=== PATIENT | male | born 2000 | race Caucasian/White ===

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

== ENCOUNTER 2023-04-16 09:15 | Inpatient (IN) | payer MEDICAID ==
[~2023-04-16] VITALS: Ht 170.2 cm; Wt 61.0 kg
[2023-04-16 09:30] VITALS: PULSE 116; RESP 34; O2SAT 96
[2023-04-16] MEDS ORDERED: SODIUM CHLORIDE 0.9% 1,000 ML IV ONE (09:30)
[2023-04-16] MEDS ORDERED: ONDANSETRON HCL 4 MG/2 ML VIAL IVP ONE (09:30)
[2023-04-16 09:43] LABS: BASOPHILS % (AUTO) 0.3 % (0.0-2.0); EOSINOPHILS % (AUTO) 0.2 % (1.0-6.0); HEMATOCRIT 49.8 % (41-53); HEMOGLOBIN 16.1 g/dL (13.5-17.5); LYMPHOCYTES # (AUTO) 1.8 K/uL (1.0-4.8); LYMPHOCYTES % (AUTO) 10.5 % (22.0-44.0); MEAN CORPUSCULAR HEMOGLOBIN 31.1 pg (26.0-34.0); MEAN CORPUSCULAR HGB CONC 32.3 G/dL (31.0-37.0); MEAN CORPUSCULAR VOLUME 96 fL (80-100); MONOCYTES # (AUTO) 1.2 K/uL (0.1-1.0); MONOCYTES % (AUTO) 7.2 % (2.0-9.0); NEUTROPHILS % (AUTO) 81.8 % (40.0-70.0); PLATELET COUNT (AUTO) 333 K/uL (150-450); RED BLOOD CELL COUNT(AUTO) 5.18 MIL/uL (4.50-5.90); RED CELL DISTRIBUTION WIDTH 13.4 % (11.5-14.5)
[2023-04-16] MEDS ORDERED: ALBUTEROL SULFATE 2.5 MG/0.5 ML NEB SOLUTION NEB ONE (09:45)
[2023-04-16] MEDS ORDERED: PIPERACILLIN SODIUM/TAZOBACTAM 4.5 GM in DEXTROSE 5%-WATER 100 ML IV ONE (09:45)
[2023-04-16] MEDS ORDERED: DEXAMETHASONE SOD PHOS 4 MG/ML VIAL IVP ONE (09:45)
[2023-04-16] MEDS ORDERED: IPRATROPIUM BROMIDE 0.5 MG/2.5 ML NEB SOLUTION NEB ONE (09:45)
[2023-04-16 09:53] LABS: ANION GAP 14 mmol/L (8-16); CALCIUM, TOTAL 8.7 mg/dL (8.8-10.5); CARBON DIOXIDE 27 mmol/L (22-29); CHLORIDE 102 mmol/L (98-107); CREATININE 2.54 mg/dL (0.60-1.30); GLOMERULAR FILTR. RATE CALC 32 mL/min (>60); GLUCOSE,RANDOM 86 mg/dL (70-110); POTASSIUM 4.1 mmol/L (3.5-5.1); SODIUM SERUM 143 mmol/L (136-145)
[2023-04-16 10:02] LABS: B-TYPE NATRIURETIC PEPTIDE 9 pg/mL (0-100)
[2023-04-16 10:19] LABS: ALANINE AMINOTRANSFERASE 173 U/L (12-78); ALBUMIN 3.9 g/dL (3.4-5.0); ALKALINE PHOSPHATASE 149 U/L (46-116); ASPARTATE AMINOTRANSFERASE 369 U/L (15-37); BILIRUBIN,TOTAL 0.6 mg/dL (0.1-1.0); CREATINE KINASE, TOTAL ONLY 191 U/L (39-308); TOTAL PROTEIN, SERUM 8.1 g/dL (6.4-8.2)
[2023-04-16 10:25] LABS: ABG CARBOXYHEMOGLOBIN 0.1 % (0.0-3.0); ABG HCO3 18.5 mmol/L (22.0-26.0); ABG METHEMOGLOBIN 0.3 % (0.0-1.5); ABG OXYGEN CONTENT 22.3 mL/dL (15.0-23.0); ABG OXYGEN SATURATION 99.1 % (95.0-98.0); ABG OXYHEMOGLOBIN 98.7 % (94.0-100.0); ABG PCO2 51 mmHg (35-45); ABG PH 7.225 (7.350-7.450); ABG TOTAL HEMOGLOBIN 15.8 G/dL (12.0-18.0); O2 DEVICE,BLOOD GAS BIPAP (ROOM AIR); PO2, ARTERIAL BG 199.9 mmHg (80.0-100.0); SITE, BLOOD GAS RT BRACHIAL; SOURCE, BLOOD GAS ARTERIAL; TEMPERATURE, FAHRENHEIT, BG 95.7 FAHREN (96.0-98.6)
[2023-04-16 10:26] LABS: INSPIRATORY TIME, BG 0.9 SEC; PRESSURE SUPPORT, BG 11 cm H2O; SPONTANEOUS VT, BG 645 ml
[2023-04-16 10:37] LABS: PHOSPHORUS 12.6 mg/dL (2.5-4.9)
[2023-04-16 11:09] VITALS: PULSE 112; RESP 22; O2SAT 96
[2023-04-16 11:15] LABS: AMPHET/METH SCREEN,URINE POSITIVE (NEGATIVE); BARBITURATE SCREEN, URINE NEGATIVE (NEGATIVE); BENZODIAZEPINES SCREEN,URINE NEGATIVE (NEGATIVE); CANNABINOID SCREEN,URINE POSITIVE (NEGATIVE); COCAINE SCREEN,URINE NEGATIVE (NEGATIVE); METHADONE SCREEN, URINE NEGATIVE (NEGATIVE); OPIATE SCREEN,URINE NEGATIVE (NEGATIVE); PHENCYCLIDINE SCREEN,URINE NEGATIVE (NEGATIVE)
[2023-04-16 11:24] VITALS: PULSE 116; RESP 21; O2SAT 93
[2023-04-16] MEDS ORDERED: NALOXONE HCL 10 MG in DEXTROSE 5%-WATER 240 ML IV PRN (11:45)
[2023-04-16] MEDS: RINGERS SOLUTION,LACTATED 1,000 ML IV SCH ×2 (11:59→18:54)
[2023-04-16] MEDS ORDERED: ACETAMINOPHEN 325 MG TABLET PO PRN ×2 (12:15→13:00)
[2023-04-16] MEDS ORDERED: 0.9% SODIUM CHLORIDE 10 ML SYRINGE IVP PRN (12:15)
[2023-04-16] MEDS ORDERED: ONDANSETRON HCL 4 MG/2 ML VIAL IVP PRN ×2 (12:15→13:00)
[2023-04-16] MEDS ORDERED: BISACODYL 10 MG RECTAL RECTAL SUPPOSITORY PR PRN (13:00)
[2023-04-16] MEDS ORDERED: HYDROCODONE/ACETAMINOPHEN 5-325 MG TABLET PO PRN (13:00)
[2023-04-16] MEDS ORDERED: ZOLPIDEM TARTRATE 5 MG TABLET PO PRN (13:00)
[2023-04-16] MEDS ORDERED: MORPHINE SULFATE 2 MG/ML SYRINGE IVP PRN (13:00)
[2023-04-16] MEDS ORDERED: LORazepam 2 MG/ML VIAL IVP PRN (13:00)
[2023-04-16] MEDS ORDERED: MAGNESIUM SULFATE 2 GM, MVI, ADULT NO.1 WITH VIT K 10 ML, THIAMINE 100 MG, FOLIC ACID 1... IV ONE ×5 (13:00)
[2023-04-16] MEDS ORDERED: MAGNESIUM HYDROXIDE SUSPENSION 30 ML UDCUP PO PRN (13:00)
[2023-04-16] MEDS: CefTRIAXone SODIUM 2 GM in DEXTROSE 5%-WATER 50 ML IV SCH (13:25)
[2023-04-16] MEDS: DOXYCYCLINE HYCLATE 100 MG in DEXTROSE 5%-WATER 100 ML IV SCH (13:25)
[2023-04-16] MEDS: HEPARIN SODIUM,PORCINE 5,000 UNITS/ML VIAL SQ SCH ×2 (15:19→23:17)
[2023-04-16 17:36] LABS: GLUCOMETER DEV NAME(LOC) ER.6
[2023-04-16] MEDS ORDERED: HEPARIN SODIUM,PORCINE 5,000 UNITS/ML VIAL IVP PRN ×2 (20:00)
[2023-04-16] MEDS ORDERED: HEPARIN SODIUM 25000 UNITS/D5W 250 ML IV PRN (20:00)
[2023-04-16] MEDS ORDERED: HEPARIN SODIUM,PORCINE 5,000 UNITS/ML VIAL IVP ONE (20:00)
[2023-04-16] MEDS: DOCUSATE SODIUM 100 MG CAPSULE PO SCH (20:19)
[2023-04-16 21:17] LABS: HEMATOCRIT 44.2 % (41-53); HEMOGLOBIN 14.6 g/dL (13.5-17.5); MEAN CORPUSCULAR HEMOGLOBIN 30.8 pg (26.0-34.0); MEAN CORPUSCULAR VOLUME 93 fL (80-100); PLATELET COUNT (AUTO) 229 K/uL (150-450); RED BLOOD CELL COUNT(AUTO) 4.74 MIL/uL (4.50-5.90); RED CELL DISTRIBUTION WIDTH 13.1 % (11.5-14.5)
[2023-04-16 21:40] LABS: INR 1.4 (0.9-1.1)
[2023-04-16 21:49] LABS: BAND NEUTROPHILS % (MANUAL) 10 % (0-5); LYMPHOCYTES % (MANUAL) 10 % (22-44); MONOCYTES % (MANUAL) 4 % (2-9); SEGMENTED NEUTROPHILS % 76 % (40-70)
[2023-04-17] MEDS: DOXYCYCLINE HYCLATE 100 MG in DEXTROSE 5%-WATER 100 ML IV SCH ×2 (01:21→13:29)
[2023-04-17] MEDS: RINGERS SOLUTION,LACTATED 1,000 ML IV SCH ×3 (03:31→18:49)
[2023-04-17 05:23] LABS: BASOPHILS % (AUTO) 0.2 % (0.0-2.0); EOSINOPHILS % (AUTO) 0 % (1.0-6.0); HEMATOCRIT 40.2 % (41-53); HEMOGLOBIN 13.7 g/dL (13.5-17.5); LYMPHOCYTES # (AUTO) 1.7 K/uL (1.0-4.8); MEAN CORPUSCULAR HEMOGLOBIN 31.9 pg (26.0-34.0); MEAN CORPUSCULAR VOLUME 94 fL (80-100); MONOCYTES # (AUTO) 0.5 K/uL (0.1-1.0); MONOCYTES % (AUTO) 3.7 % (2.0-9.0); NEUTROPHILS # (AUTO) 11.2 K/uL (1.8-7.7); NEUTROPHILS % (AUTO) 83.1 % (40.0-70.0); PLATELET COUNT (AUTO) 211 K/uL (150-450); RED BLOOD CELL COUNT(AUTO) 4.28 MIL/uL (4.50-5.90); RED CELL DISTRIBUTION WIDTH 13.1 % (11.5-14.5)
[2023-04-17 05:40] LABS: ALANINE AMINOTRANSFERASE 110 U/L (12-78); ALBUMIN 2.7 g/dL (3.4-5.0); ALKALINE PHOSPHATASE 64 U/L (46-116); ANION GAP 5 mmol/L (8-16); ASPARTATE AMINOTRANSFERASE 229 U/L (15-37); BILIRUBIN,TOTAL 0.7 mg/dL (0.1-1.0); CALCIUM, TOTAL 7.8 mg/dL (8.8-10.5); CARBON DIOXIDE 28 mmol/L (22-29); CHLORIDE 105 mmol/L (98-107); CREATININE 1.16 mg/dL (0.60-1.30); GLOMERULAR FILTR. RATE CALC > 60 mL/min (>60); GLUCOSE,RANDOM 112 mg/dL (70-110); POTASSIUM 4.2 mmol/L (3.5-5.1); SODIUM SERUM 137 mmol/L (136-145)
[2023-04-17 05:47] LABS: CHOL/HDL RATIO 1.9 (4.2-7.3)
[2023-04-17] MEDS: HEPARIN SODIUM,PORCINE 5,000 UNITS/ML VIAL SQ SCH ×2 (07:05→15:03)
[2023-04-17] MEDS: DOCUSATE SODIUM 100 MG CAPSULE PO SCH ×2 (08:20→20:21)
[2023-04-17] MEDS: PANTOPRAZOLE SODIUM 40 MG DR TABLET PO SCH (08:24)
[2023-04-17] MEDS: CefTRIAXone SODIUM 2 GM in DEXTROSE 5%-WATER 50 ML IV SCH (13:29)
[2023-04-18] MEDS: DOXYCYCLINE HYCLATE 100 MG in DEXTROSE 5%-WATER 100 ML IV SCH ×2 (01:13→13:22)
[2023-04-18] MEDS: RINGERS SOLUTION,LACTATED 1,000 ML IV SCH ×3 (03:45→19:45)
[2023-04-18 06:08] LABS: BASOPHILS % (AUTO) 0.5 % (0.0-2.0); EOSINOPHILS % (AUTO) 0.6 % (1.0-6.0); HEMATOCRIT 41.2 % (41-53); HEMOGLOBIN 14.2 g/dL (13.5-17.5); LYMPHOCYTES # (AUTO) 1.6 K/uL (1.0-4.8); LYMPHOCYTES % (AUTO) 12.2 % (22.0-44.0); MEAN CORPUSCULAR HEMOGLOBIN 31.7 pg (26.0-34.0); MEAN CORPUSCULAR HGB CONC 34.5 G/dL (31.0-37.0); MEAN CORPUSCULAR VOLUME 92 fL (80-100); MONOCYTES # (AUTO) 0.6 K/uL (0.1-1.0); MONOCYTES % (AUTO) 4.2 % (2.0-9.0); NEUTROPHILS # (AUTO) 11.1 K/uL (1.8-7.7); NEUTROPHILS % (AUTO) 82.5 % (40.0-70.0); PLATELET COUNT (AUTO) 193 K/uL (150-450); RED BLOOD CELL COUNT(AUTO) 4.48 MIL/uL (4.50-5.90); RED CELL DISTRIBUTION WIDTH 12.8 % (11.5-14.5)
[2023-04-18 06:18] LABS: ANION GAP 4 mmol/L (8-16); CARBON DIOXIDE 28 mmol/L (22-29); CHLORIDE 105 mmol/L (98-107); CREATININE 0.93 mg/dL (0.60-1.30); GLOMERULAR FILTR. RATE CALC > 60 mL/min (>60); GLUCOSE,RANDOM 112 mg/dL (70-110); POTASSIUM 3.8 mmol/L (3.5-5.1); SODIUM SERUM 137 mmol/L (136-145)
[2023-04-18] MEDS: PANTOPRAZOLE SODIUM 40 MG DR TABLET PO SCH (08:36)
[2023-04-18] MEDS: DOCUSATE SODIUM 100 MG CAPSULE PO SCH ×2 (08:36→20:26)
[2023-04-18] MEDS: HEPARIN SODIUM,PORCINE 5,000 UNITS/ML VIAL SQ SCH ×4 (08:37→23:16)
[2023-04-18] MEDS: CefTRIAXone SODIUM 2 GM in DEXTROSE 5%-WATER 50 ML IV SCH (14:52)
[2023-04-18 23:02] VITALS: BP 140/77; PULSE 87; RESP 18; TEMP 98.4
[2023-04-19] MEDS: DOXYCYCLINE HYCLATE 100 MG in DEXTROSE 5%-WATER 100 ML IV SCH ×2 (01:13→12:22)
[2023-04-19] MEDS ORDERED: SODIUM CHLORIDE 0.9% 1,000 ML ONE (01:20)
[2023-04-19 04:30] VITALS: BP 135/70; PULSE 85; RESP 17; TEMP 98.5
[2023-04-19 06:05] LABS: BASOPHILS % (AUTO) 0.6 % (0.0-2.0); EOSINOPHILS % (AUTO) 1.4 % (1.0-6.0); HEMATOCRIT 42.7 % (41-53); LYMPHOCYTES # (AUTO) 1.8 K/uL (1.0-4.8); LYMPHOCYTES % (AUTO) 16.8 % (22.0-44.0); MEAN CORPUSCULAR HEMOGLOBIN 31.8 pg (26.0-34.0); MEAN CORPUSCULAR VOLUME 91 fL (80-100); MONOCYTES # (AUTO) 0.5 K/uL (0.1-1.0); NEUTROPHILS # (AUTO) 8.3 K/uL (1.8-7.7); NEUTROPHILS % (AUTO) 76.2 % (40.0-70.0); PLATELET COUNT (AUTO) 231 K/uL (150-450); RED BLOOD CELL COUNT(AUTO) 4.71 MIL/uL (4.50-5.90); RED CELL DISTRIBUTION WIDTH 12.7 % (11.5-14.5)
[2023-04-19 06:14] LABS: ANION GAP 12 mmol/L (8-16); CALCIUM, TOTAL 9.3 mg/dL (8.8-10.5); CARBON DIOXIDE 27 mmol/L (22-29); CHLORIDE 101 mmol/L (98-107); CREATININE 0.73 mg/dL (0.60-1.30); GLOMERULAR FILTR. RATE CALC > 60 mL/min (>60); GLUCOSE,RANDOM 102 mg/dL (70-110); POTASSIUM 3.8 mmol/L (3.5-5.1); SODIUM SERUM 140 mmol/L (136-145)
[2023-04-19 07:50] VITALS: BP 103/63; PULSE 63; RESP 18; TEMP 98
[2023-04-19] MEDS: DOCUSATE SODIUM 100 MG CAPSULE PO SCH (08:17)
[2023-04-19] MEDS: RINGERS SOLUTION,LACTATED 1,000 ML IV SCH (08:18)
[2023-04-19] MEDS: PANTOPRAZOLE SODIUM 40 MG DR TABLET PO SCH (08:18)
[2023-04-19] MEDS: HEPARIN SODIUM,PORCINE 5,000 UNITS/ML VIAL SQ SCH (08:18)
[2023-04-19 10:42] VITALS: BP 122/84; PULSE 88; RESP 18; TEMP 98.1
[2023-04-19] MEDS: CefTRIAXone SODIUM 2 GM in DEXTROSE 5%-WATER 50 ML IV SCH (13:56)
[2023-04-19] MEDS ORDERED: DOXY-354 PO (14:13)
== END 2023-04-19 15:35 | disposition home or self-care (01) | DRG 812 ==
LOC: EMS 09:16 → ICUN 11:14 → 5N 04-18 18:46
PROVIDERS: ADMIT Internal Medicine; ATTEND Internal Medicine
PROC: 5A09357 Assistance with Respiratory Ventilation, Less than 24 Consecutive Hours, Continuous Positive Airway Pressure (ICD-10-PCS; principal; 2023-04-16)
DX: T40.411A Poisoning by fentanyl or fentanyl analogs, accidental (unintentional), initial encounter (principal); J96.01 Acute respiratory failure with hypoxia; J69.0 Pneumonitis due to inhalation of food and vomit; I21.4 Non-ST elevation (NSTEMI) myocardial infarction; G92.8 Other toxic encephalopathy; N17.9 Acute kidney failure, unspecified; F15.129 Other stimulant abuse with intoxication, unspecified; F12.129 Cannabis abuse with intoxication, unspecified; F11.129 Opioid abuse with intoxication, unspecified; T43.651A Poisoning by methamphetamines accidental (unintentional), initial encounter; R00.0 Tachycardia, unspecified; R74.01 Elevation of levels of liver transaminase levels; D72.829 Elevated white blood cell count, unspecified; E87.20 Acidosis, unspecified; Z71.51 Drug abuse counseling and surveillance of drug abuser; Y92.89 Other specified places as the place of occurrence of the external cause
CPT/HCPCS: 36600; 70450; 71045; 72125; 80048; 80053; 80061; 80307; 82550; 82805; 82962; 83735; 83880; 84100; 84484; 85025; 85610; 85730; 93005; 93306; 94640; 94660; 99291; G0378; G0480; J0696; J1100; J1644; J2310; J2405; J2543; J3411; J3475; J3490; J7030; J7060; J7120; 36415-L1; 36415-TC; J7613

== ENCOUNTER 2024-05-20 12:49 | Inpatient (IN) | payer MEDICAID ==
[~2024-05-20] VITALS: Ht 170.2 cm; Wt 77.1 kg
[~2024-05-20 12:49] MED LIST changes: +DOXY-354 PO; -NOCURR
[2024-05-20] MEDS ORDERED: HYDR-4527 PO (13:31)
[2024-05-20] MEDS ORDERED: SERT-158 PO (13:31)
[2024-05-20] MEDS ORDERED: BUPR1TAB46 SL (13:31)
[2024-05-20] MEDS ORDERED: TRAZ-257 PO (13:31)
[2024-05-20 13:46] LABS: BASOPHILS % (AUTO) 0.5 % (0.0-2.0); EOSINOPHILS % (AUTO) 0.7 % (1.0-6.0); HEMATOCRIT 43.2 % (41-53); LYMPHOCYTES # (AUTO) 1.6 K/uL (1.0-4.8); LYMPHOCYTES % (AUTO) 18.9 % (22.0-44.0); MEAN CORPUSCULAR HEMOGLOBIN 30.6 pg (26.0-34.0); MEAN CORPUSCULAR HGB CONC 34.7 G/dL (31.0-37.0); MEAN CORPUSCULAR VOLUME 88 fL (80-100); MONOCYTES # (AUTO) 0.4 K/uL (0.1-1.0); MONOCYTES % (AUTO) 4.9 % (2.0-9.0); NEUTROPHILS # (AUTO) 6.5 K/uL (1.8-7.7); PLATELET COUNT (AUTO) 287 K/uL (150-450); RED BLOOD CELL COUNT(AUTO) 4.89 MIL/uL (4.50-5.90); RED CELL DISTRIBUTION WIDTH 13.9 % (11.5-14.5); WHITE BLOOD COUNT (AUTO) 8.7 K/uL (4.5-11.0)
[2024-05-20 14:02] LABS: ANION GAP 9 mmol/L (8-16); CALCIUM, TOTAL 8.5 mg/dL (8.8-10.5); CARBON DIOXIDE 26 mmol/L (22-29); CHLORIDE 103 mmol/L (98-107); CREATININE 1.03 mg/dL (0.60-1.30); GLOMERULAR FILTR. RATE CALC > 60 mL/min (>60); GLUCOSE,RANDOM 123 mg/dL (70-110); POTASSIUM 3.8 mmol/L (3.5-5.1); SODIUM SERUM 138 mmol/L (136-145); UREA NITROGEN, BLOOD 14 mg/dL (7-18)
[2024-05-20 14:07] LABS: ALANINE AMINOTRANSFERASE 37 U/L (12-78); ALBUMIN 3.6 g/dL (3.4-5.0); ALKALINE PHOSPHATASE 93 U/L (46-116); ASPARTATE AMINOTRANSFERASE 30 U/L (15-37); BILIRUBIN,TOTAL 0.7 mg/dL (0.1-1.0); LIPASE 25 U/L (16-77); TOTAL PROTEIN, SERUM 7.4 g/dL (6.4-8.2)
[2024-05-20 14:10] LABS: ALCOHOL, URINE DRUG SCREEN NEGATIVE (NEGATIVE); AMPHET/METH SCREEN,URINE NEGATIVE (NEGATIVE); BARBITURATE SCREEN, URINE NEGATIVE (NEGATIVE); BENZODIAZEPINES SCREEN,URINE NEGATIVE (NEGATIVE); CANNABINOID SCREEN,URINE NEGATIVE (NEGATIVE); COCAINE SCREEN,URINE NEGATIVE (NEGATIVE); METHADONE SCREEN, URINE NEGATIVE (NEGATIVE); OPIATE SCREEN,URINE NEGATIVE (NEGATIVE); PHENCYCLIDINE SCREEN,URINE NEGATIVE (NEGATIVE)
[2024-05-20] MEDS: BUPRENORPHINE HCL/NALOXONE HCL 8-2 MG SUBLINGUAL TABLET SL ONE (14:33)
[2024-05-20 14:52] LABS: ALCOHOL, BLOOD (SERUM) < 3 mg/dL (0-10)
[2024-05-20 17:47] LABS: COVID AG,FIA SOURCE NASAL SWAB
[2024-05-20 18:10] LABS: SARS-COV2 (COVID) ANTIGEN,FIA Negative (Negative)
[2024-05-20] MEDS: LORazepam 2 MG TABLET PO PRN (19:14)
[2024-05-20] MEDS: HALOPERIDOL 5 MG TABLET PO PRN (19:14)
[2024-05-20 22:37] VITALS: BP 110/60; PULSE 60; RESP 18; TEMP 98
[2024-05-21 08:53] VITALS: BP 111/69; PULSE 76; RESP 18; TEMP 98.1; O2SAT 98
[2024-05-21] MEDS: BUPRENORPHINE HCL/NALOXONE HCL 8-2 MG SUBLINGUAL TABLET SL SCH (09:42)
[2024-05-21] MEDS ORDERED: PETROLATUM,WHITE 28 GM JELLY TP PRN (13:30)
[2024-05-21] MEDS ORDERED: ACETAMINOPHEN 325 MG TABLET PO PRN (13:30)
[2024-05-21] MEDS ORDERED: MAG HYDROX/ALUMINUM HYD/SIMETH ES 30 ML SUSPENSION UDCUP PO PRN (13:30)
[2024-05-21] MEDS ORDERED: GuaiFENesin/D-METHORPHAN [SUGAR-FREE] 200-20MG/10 ML SYRUP UDCUP PO PRN (13:30)
[2024-05-21] MEDS ORDERED: IBUPROFEN 400 MG TABLET PO PRN (13:30)
[2024-05-21] MEDS ORDERED: LOPERAMIDE HCL 2 MG CAPSULE PO PRN (13:30)
[2024-05-21] MEDS ORDERED: CloNIDine HCL 0.1 MG TABLET PO PRN (13:30)
[2024-05-21] MEDS ORDERED: ALBUTEROL SULFATE HFA 90 MCG/PUFF 8 GM INHALER IH PRN (13:30)
[2024-05-21] MEDS ORDERED: ONDANSETRON HCL 4 MG TABLET PO PRN (13:30)
[2024-05-21] MEDS ORDERED: MAGNESIUM HYDROXIDE SUSPENSION 30 ML UDCUP PO PRN (13:30)
[2024-05-21] MEDS ORDERED: DOCUSATE SODIUM 100 MG CAPSULE PO PRN (13:30)
[2024-05-21] MEDS ORDERED: HydrOXYzine HCL 25 MG TABLET PO PRN (17:15)
[2024-05-21] MEDS: ZOLPIDEM TARTRATE 10 MG TABLET PO PRN (20:48)
[2024-05-21 22:07] VITALS: BP 105/63; PULSE 65; RESP 17; TEMP 97.8; O2SAT 96
[2024-05-22 08:26] VITALS: BP 108/63; PULSE 56; RESP 16; TEMP 97.8; O2SAT 97
[2024-05-22] MEDS: SERTRALINE HCL 50 MG TABLET PO SCH (08:44)
[2024-05-22] MEDS: NICOTINE 14 MG/24 HOUR PATCH TD PRN (16:10)
[2024-05-22 20:56] VITALS: BP 126/67; PULSE 59; RESP 18; TEMP 97.9; O2SAT 100
[2024-05-23 08:56] VITALS: BP 107/60; PULSE 53; RESP 18; TEMP 98.2; O2SAT 97
[2024-05-23 10:48] VITALS: BP 113/80; PULSE 63; RESP 17; TEMP 97.7; O2SAT 96
[2024-05-23 18:04] VITALS: BP 129/76
[2024-05-23 19:47] VITALS: PULSE 100
[2024-05-23 21:14] VITALS: RESP 19; TEMP 97.5; O2SAT 98
[2024-05-24 10:02] VITALS: BP 106/61; PULSE 50; RESP 17; TEMP 97.2; O2SAT 96
[2024-05-24 15:55] VITALS: BP 129/75
[2024-05-24 20:48] VITALS: BP 124/80; PULSE 91; RESP 16; TEMP 97.1; O2SAT 97
[2024-05-25 08:38] VITALS: BP 111/60; PULSE 60; RESP 16; TEMP 97.6; O2SAT 100
== END 2024-05-25 15:25 | DRG 751 ==
LOC: EMS 12:53 → B2S 17:22
PROVIDERS: ADMIT Psychiatry & Neurology Child & Adolescent Psychiatry; ATTEND Psychiatry & Neurology Child & Adolescent Psychiatry
PROC: GZ52ZZZ Individual Psychotherapy, Cognitive (ICD-10-PCS; principal; 2024-05-21)
PROC: GZ56ZZZ Individual Psychotherapy, Supportive (ICD-10-PCS; 2024-05-21)
DX: F33.9 Major depressive disorder, recurrent, unspecified (principal); F11.23 Opioid dependence with withdrawal; F41.9 Anxiety disorder, unspecified; Z20.822 Contact with and (suspected) exposure to COVID-19; G47.00 Insomnia, unspecified; I10 Essential (primary) hypertension; Z79.899 Other long term (current) drug therapy
CPT/HCPCS: 80053; 80307; 83690; 85025; 99285; G0480; 36415-L1; 36415-TC; J0575; Z7502; Z7610

== ENCOUNTER 2024-05-31 07:29 | Inpatient (IN) | payer MEDICAID ==
[~2024-05-31] VITALS: Ht 170.2 cm; Wt 75.8 kg
[~2024-05-31 07:29] MED LIST changes: +BUPR1TAB46 SL; -DOXY-354 PO; +SERT-158 PO
[2024-05-31 08:06] LABS: BASOPHILS % (AUTO) 0.4 % (0.0-2.0); EOSINOPHILS % (AUTO) 2.4 % (1.0-6.0); HEMATOCRIT 44.7 % (41-53); HEMOGLOBIN 15.3 g/dL (13.5-17.5); LYMPHOCYTES # (AUTO) 1.9 K/uL (1.0-4.8); LYMPHOCYTES % (AUTO) 34.9 % (22.0-44.0); MEAN CORPUSCULAR HEMOGLOBIN 30.8 pg (26.0-34.0); MEAN CORPUSCULAR HGB CONC 34.3 G/dL (31.0-37.0); MEAN CORPUSCULAR VOLUME 90 fL (80-100); MONOCYTES # (AUTO) 0.3 K/uL (0.1-1.0); MONOCYTES % (AUTO) 6.3 % (2.0-9.0); PLATELET COUNT (AUTO) 222 K/uL (150-450); RED BLOOD CELL COUNT(AUTO) 4.97 MIL/uL (4.50-5.90); RED CELL DISTRIBUTION WIDTH 13.8 % (11.5-14.5); WHITE BLOOD COUNT (AUTO) 5.4 K/uL (4.5-11.0)
[2024-05-31 08:12] LABS: COVID AG,FIA SOURCE NASAL SWAB
[2024-05-31 08:16] LABS: ANION GAP 10 mmol/L (8-16); CALCIUM, TOTAL 8.6 mg/dL (8.8-10.5); CARBON DIOXIDE 26 mmol/L (22-29); CHLORIDE 104 mmol/L (98-107); GLOMERULAR FILTR. RATE CALC > 60 mL/min (>60); GLUCOSE,RANDOM 110 mg/dL (70-110); POTASSIUM 3.6 mmol/L (3.5-5.1); SODIUM SERUM 140 mmol/L (136-145); UREA NITROGEN, BLOOD 12 mg/dL (7-18)
[2024-05-31 08:35] LABS: SARS-COV2 (COVID) ANTIGEN,FIA Negative (Negative)
[2024-05-31 08:36] LABS: INFLUENZA TYPE A NEGATIVE FOR TYPE A (NEGATIVE); INFLUENZA TYPE B NEGATIVE FOR TYPE B (NEGATIVE)
[2024-05-31] MEDS: CALCIUM CARBONATE 500 MG CHEWABLE TABLET CHEW ONE (09:52)
[2024-05-31] MEDS: KETOROLAC TROMETHAMINE 60 MG/2 ML VIAL IM ONE (09:52)
[2024-05-31 11:15] LABS: APPEARANCE,URINE CLEAR (CLEAR); BILIRUBIN,URINE NEGATIVE (NEGATIVE); COLOR,URINE LIGHT YELLOW (YELLOW); GLUCOSE, URINE (UA) NEGATIVE (NEGATIVE); KETONES,URINE NEGATIVE (NEGATIVE); LEUKOCYTE ESTERASE ,URINE NEGATIVE (NEGATIVE); NITRATE,URINE NEGATIVE (NEGATIVE); OCCULT BLOOD,URINE NEGATIVE (NEGATIVE); PROTEIN,URINE NEGATIVE (NEGATIVE); SPECIFIC GRAVITIY, URINE 1.012 (1.003-1.030); UROBILINOGEN,URINE <=1.0 mg/dL (<=1.0)
[2024-05-31 11:25] LABS: ALCOHOL, URINE DRUG SCREEN NEGATIVE (NEGATIVE); BARBITURATE SCREEN, URINE NEGATIVE (NEGATIVE); BENZODIAZEPINES SCREEN,URINE NEGATIVE (NEGATIVE); CANNABINOID SCREEN,URINE NEGATIVE (NEGATIVE); COCAINE SCREEN,URINE NEGATIVE (NEGATIVE); METHADONE SCREEN, URINE NEGATIVE (NEGATIVE); OPIATE SCREEN,URINE NEGATIVE (NEGATIVE); PHENCYCLIDINE SCREEN,URINE NEGATIVE (NEGATIVE)
[2024-05-31 11:48] LABS: AMPHET/METH SCREEN,URINE NEGATIVE (NEGATIVE)
[2024-05-31 15:54] VITALS: BP 135/71; PULSE 61; RESP 18; TEMP 98.5; O2SAT 96
[2024-05-31] MEDS: LORazepam 2 MG TABLET PO PRN (18:04)
[2024-05-31] MEDS: HALOPERIDOL 5 MG TABLET PO PRN (21:32)
[2024-05-31] MEDS: ZOLPIDEM TARTRATE 10 MG TABLET PO PRN (21:32)
[2024-05-31 21:37] VITALS: BP 111/62; PULSE 64; RESP 16; TEMP 97.7; O2SAT 99
[2024-06-01] MEDS ORDERED: ALBUTEROL SULFATE HFA 90 MCG/PUFF 8 GM INHALER IH PRN (07:00)
[2024-06-01] MEDS ORDERED: MAG HYDROX/ALUMINUM HYD/SIMETH ES 30 ML SUSPENSION UDCUP PO PRN (07:00)
[2024-06-01] MEDS ORDERED: CloNIDine HCL 0.1 MG TABLET PO PRN (07:00)
[2024-06-01] MEDS ORDERED: PETROLATUM,WHITE 28 GM JELLY TP PRN (07:00)
[2024-06-01] MEDS ORDERED: BENZOCAINE/MENTHOL LOZENGE PO PRN (07:00)
[2024-06-01] MEDS ORDERED: ONDANSETRON 4 MG TABLET PO PRN (07:00)
[2024-06-01] MEDS ORDERED: BACITRACIN 28 GM OINTMENT TP PRN (07:00)
[2024-06-01] MEDS ORDERED: MAGNESIUM HYDROXIDE SUSPENSION 30 ML UDCUP PO PRN (07:00)
[2024-06-01] MEDS ORDERED: OMEPRAZOLE 20 MG CAPSULE PO PRN (07:00)
[2024-06-01] MEDS ORDERED: LOPERAMIDE HCL 2 MG CAPSULE PO PRN (07:00)
[2024-06-01] MEDS ORDERED: ACETAMINOPHEN 325 MG TABLET PO PRN (07:00)
[2024-06-01] MEDS ORDERED: DOCUSATE SODIUM 100 MG CAPSULE PO PRN (07:00)
[2024-06-01] MEDS ORDERED: IBUPROFEN 600 MG TABLET PO PRN (07:00)
[2024-06-01 09:50] VITALS: BP 137/76; PULSE 70; RESP 18; TEMP 97.5; O2SAT 98
[2024-06-01 09:55] VITALS: BP 137/76; PULSE 98; RESP 18; TEMP 97.5; O2SAT 98
[2024-06-01 21:53] VITALS: BP 111/65; PULSE 65; RESP 18; TEMP 98.1; O2SAT 97
[2024-06-02] MEDS ORDERED: FLUoxetine HCL 20 MG CAPSULE PO SCH (09:00)
[2024-06-02] MEDS: SERTRALINE HCL 50 MG TABLET PO SCH (09:30)
[2024-06-02 11:06] VITALS: RESP 18
[2024-06-02 20:24] VITALS: BP 111/92; PULSE 97; RESP 18; TEMP 98.3; O2SAT 98
[2024-06-03 10:24] VITALS: BP 119/78; PULSE 70; RESP 19; TEMP 97.5; O2SAT 96
== END 2024-06-03 13:05 | DRG 754 ==
LOC: EMS 07:29 → 3EI 15:19
PROVIDERS: ADMIT Psychiatry & Neurology Psychiatry; ATTEND Psychiatry & Neurology Child & Adolescent Psychiatry
DX: F32.A Depression, unspecified (principal); E83.51 Hypocalcemia; F10.10 Alcohol abuse, uncomplicated; Z20.822 Contact with and (suspected) exposure to COVID-19; F41.9 Anxiety disorder, unspecified; G47.00 Insomnia, unspecified; F12.90 Cannabis use, unspecified, uncomplicated; Z87.891 Personal history of nicotine dependence
CPT/HCPCS: 80048; 80307; 81003; 85025; 87804; 99285; J1885

== ENCOUNTER 2024-06-16 14:41 | Emergency (ER) | payer MEDICAID ==
[~2024-06-16 14:41] MED LIST changes: -BUPR1TAB46 SL
== END 2024-06-16 15:20 | disposition left against medical advice (07) ==
LOC: EMS 14:41
DX: Z53.21 Procedure and treatment not carried out due to patient leaving prior to being seen by health care provider (principal)